=== PATIENT | male | born 1970 | race Caucasian/White ===

== ENCOUNTER 2025-02-06 13:40 | Emergency (ER) | payer OTHER ==
[~2025-02-06] VITALS: Ht 180.3 cm; Wt 76.3 kg
[~2025-02-06 13:40] MED LIST: IBUP-1456 PO
[2025-02-06 15:47] LABS: Hematocrit 31.1 % (41.0-53.0); Hemoglobin 10.0 g/dL (13.5-17.5); Mean Corpuscular Hemoglobin 23.3 pg (28.0-32.0); Mean Corpuscular Volume 72.7 fL (80.0-100.0); Nucleated Red Blood Cells % 0.0 %
[2025-02-06 15:53] LABS: Chloride 103 mmol/L (98-107); Potassium 4.4 mmol/L (3.5-5.1); Sodium 143 mmol/L (136-145)
[2025-02-06 15:54] LABS: Anion Gap 11 (5-15); Carbon Dioxide 29 mmol/L (20-31)
[2025-02-06 15:55] LABS: Calcium 9.4 mg/dL (8.7-10.4)
[2025-02-06 16:00] LABS: BUN/Creatinine Ratio 10.2 (10.0-20.0); Blood Urea Nitrogen 14 mg/dL (9-23); Glucose 95 mg/dL (74-106)
[2025-02-06 16:02] LABS: INR 0.92 (0.9-1.15); Partial Thromboplastin Time 30.1 SEC (24.5-34.5); Prothrombin Time 9.8 sec (9.3-11.8)
[2025-02-06] MEDS: IOHEXOL 350 MG/ML 100ML IJ ONE (16:45)
--- NOTE | 2025-02-06 17:22 | DVH ---
EXAM: CT CT CHEST/AB/PL W CON- IV ONLY INDICATION: Hematemesis/history of esophageal varices TECHNIQUE: Volumetric multidetector CT images of the chest, abdomen and pelvis were obtained after th e administration of IV contrast. All CT scans at this facility use dose modulation, iterative reconst ruction, and/or weight based dosing when appropriate to reduce radiation dose to as low as reasonably achievable. COMPARISON: None FINDINGS: LOWER NECK: Unremarkable LYMPH NODES/MEDIASTINUM: No abnormal lymph nodes by CT size criteria. CARDIOVASCULAR: Normal cardiac size. No pericardial effusion. No aneurysmal dilatation of the great v essels. Coronary artery calcifications. LUNG PARENCHYMA/PLEURAL SPACE: No pleural effusion or pneumothorax. Patchy areas of ground-glass in b ilateral upper lobes. Atelectasis in bilateral lung bases. Suspected partially calcified left pulmon hardy nodule measuring 9 mm. No bronchiectasis CHEST WALL: Unremarkable. LIVER: Normal hepatic size without suspicious focal lesion. GALLBLADDER/BILIARY TREE: No cholelithiasis. SPLEEN: Unremarkable. PANCREAS: Unremarkable. ADRENAL GLANDS: Unremarkable KIDNEYS: No hydronephrosis. benign-appearing cysts of the anterior superior kidney. BLADDER: Circumferential bladder wall thickening, which may be seen in the setting of acute versus ch ronic cystitis and correlate with urinalysis. PELVIC ORGANS: Unremarkable. BOWEL/MESENTERY: Small sliding hernia 1 distal circumferential esophageal thickening correlate for vo miting/reflux with subsequent esophagitis. Moderate to severe stool burden. Correlate for constipati on ASCITES: Absent LYMPHADENOPATHY: No pathologically enlarged lymph nodes by CT size criteria VASCULATURE: No aneurysmal dilatation. No significant large gastroesophageal varices. No definitive e vidence of portal hypertension. ABDOMINAL WALL: Unremarkable. MUSCULOSKELETAL: No acute fracture or aggressive focal osseous lesion. Suspected prior healed right p osterior 11th fracture. IMPRESSION: 1. Circumferential bladder wall thickening, which may be seen in the setting of acute versus chronic cystitis and correlate with urinalysis. 2. Small sliding hiatal hernia with distal circumferential esophageal thickening correlate for vomiti ng/reflux with subsequent esophagitis. 3. Moderate to severe stool burden. Correlate for constipation. 4. Patchy areas of ground-glass in bilateral upper lobes. Findings may be infectious and/or inflammat ory.
[2025-02-06] MEDS: HYDROmorphone HCL 2 MG/ML VL/or syr IV ONE (17:31)
[2025-02-06] MEDS: ONDANSETRON HCL 4 MG/2 ML VIAL IV ONE (17:31)
[2025-02-06 20:24] VITALS: TEMP 97.6
[2025-02-06 21:00] VITALS: O2SAT 98
[2025-02-06 21:10] VITALS: O2SAT 98
[2025-02-06 21:15] LABS: Urine Budding Yeast OCCASIONAL /hpf (None Seen); Urine Protein, UAD TRACE (Negative)
[2025-02-06] MEDS: levoFLOXacin 250 MG TAB PO ONE (21:43)
[2025-02-06] MEDS ORDERED: DICY10CA PO (21:48)
[2025-02-06] MEDS ORDERED: ZOFR4T PO (21:48)
[2025-02-06] MEDS ORDERED: LEVO500T91 PO (21:48)
[2025-02-06] MEDS ORDERED: HYDR-4798 PO (21:49)
[2025-02-06] MEDS ORDERED: LACT10SO3 PO (21:49)
--- NOTE | 2025-02-06 21:50 | ED.PDOC ---
GI ASSESSMENT HPI Comments This patient is a 54-year-old male who arrives the ED today for evaluation of abdominal pain as well as hematemesis concerns for the past few days. Patient states he has a history of esophageal varices and hiatal hernia with a concurrent history of alcohol use and abuse. Patient denies any fever. Patient states he has a history of anemia due to the varices that has required transfusions in the past. Vital signs were stable on arrival. Chief Complaint: GI Bleed Time Seen by MD: 15:03 Reviewed Notes: Nurses Notes Allergies: Coded Allergies: NO KNOWN ALLERGIES (Unverified , 03/09/22) Home Meds Active Scripts Ibuprofen (Ibuprofen) 800 Mg Tab, 1 TAB PO TID, #30 TAB Prov:SANKET AGGARWAL 03/09/22 Information Source: Patient Mode of Arrival: Ambulatory Timing: Days Duration: Since onset Prehospital treatment: None Quality: Aching, Cramping Vomitus: Coffee Grounds Severity: Moderate Recent: None Recent Hx of: Other (Esophageal varices, hiatal hernia and stomach ulcers) Pain Location: Diffuse, Epigastric, Periumbilical Modifying Factors: Food Associated sign and symptoms: Nausea, Vomiting, Abdominal Pain Past Medical History PAST MEDICAL HISTORY: Denies Past Medical History (Other): Patient, history of esophageal varices, hiatal hernia and gastric ulcers Surgical History: Denies all surgeries Family History Family History: Reviewed,noncontributory to illness Social History Smoker: Non-Smoker Alcohol: Denies ETOH Use Drugs: Denies Drug Use Lives In: Home Constitutional: denies: chills, diaphoresis, fatigue, fever, malaise, sweats, weakness, others EENTM: denies: blurred vision, double vision, ear bleeding, ear discharge, ear drainage, ear pain, ear ringing, eye pain, eye redness, hearing loss, mouth pain, mouth swelling, nasal discharge, nose bleeding, nose congestion, nose pain, photophobia, tearing, throat pain, throat swelling, voice changes, others Respiratory: denies: cough, hemoptysis, orthopnea, SOB at rest, shortness of breath, SOB with excertion, stridor, wheezing, others Cardiovascular: denies: chest pain, dizzy spells, diaphoresis, Dyspnea on exertion, edema, irregular heart beat, left arm pain, lightheadedness, palpitations, PND, syncope, others Gastrointestinal: reports: abdominal pain, nausea, vomiting; denies: abdomen distended, blood streaked bowels, constipated, diarrhea, dysphagia, difficulty swallowing, hematemesis, melena, poor appetite, poor fluid intake, rectal bleeding, rectal pain, others Genitourinary: denies: burning, dysuria, flank pain, frequency, hematuria, incontinence, penile discharge, penile sore, pain, testicle pain, testicle swelling, urgency, others Neurological: denies: dizziness, fainting, headache, left sided numbness, left sided weakness, numbness, paresthesia, pre-existing deficit, right sided numbness, right sided weakness, seizure, speech problems, tingling, tremors, weakness, others Musculoskeletal: denies: back pain, gout, joint pain, joint swelling, muscle pain, muscle stiffness, neck pain, others Integumetry: denies: bruises, change in color, change in hair/nails, dryness, laceration, lesions, lumps, rash, wounds, others Allergic/Immunocompromised: denies: Difficulty Healing, Frequent Infections, Hives, Itching, others Hematologic/Lymphatic: denies: anemia, blood clots, easy bleeding, easy bruising, swollen glands, others Endocrine: denies: excessive hunger, excessive sweating, excessive thirst, excessive urination, flushing, intolerance to cold, intolerance to heat, unexplained weight gain, unexplained weight loss, others Psychiatric: denies: anxiety, bipolar disorder, depression, hopeless, panic disorder, schizophrenia, sleepless, suicidal, others Physical Exam General Appearance: Moderate Distress (Due to abdominal pain concerns.), Normal HEENT: Normal ENT Inspection, Pharynx Normal, TMs Normal Neck: Full Range of Motion, Non-Tender, Normal, Normal Inspection Respiratory: Chest Non-Tender, Lungs Clear, No Accessory Muscle Use, No Respiratory Distress, Normal Breath Sounds Cardiovascular: No Edema, No JVD, No Murmur, No Gallop, Normal Peripheral Pulses, Regular Rate/Rhythm Breast Exam: Deferred Gastrointestinal: Other (Diffuse nonspecific epigastric tenderness to palpation . Pain extending towards the umbilicus. No signs of trauma. Abdomen was mildly rigid.) Genitalia: Deferred Pelvic: Deferred Rectal: Deferred Extremities: No calf tenderness, Normal inspection Neurologic: Alert Cerebellar Function: NOT DONE Reflexes: NOT DONE Skin: Dry, Normal Color, Warm Lymphatic: No Adenopathy Was a procedure done? Was a procedure done?: No GI differential Dx Differential Diagnosis: Appendicitis, Bowel Obstruction, Cholangitis, Cholecystitis, Constipation, Diverticular disease, Esophagitis, Gastritis/PUD, Gastroenteritis, Pancreatitis, Other (Esophageal varices, gastric ulcer) X-Ray, Labs, Meds, VS Vital Signs Date Time Temp Pulse Resp B/P (MAP) Pulse Ox O2 Delivery O2 Flow Rate FiO2 02/06/25 20:24 97.6 56 16 145/91 (109) 98 97.6 02/06/25 17:31 74 17 130/87 02/06/25 17:21 97.8 74 17 130/87 (101) 99 97.8 02/06/25 13:44 97.6 91 16 120/71 100 97.6 Lab Test 02/06/25 20:00 02/06/25 16:19 02/06/25 15:30 Range/Units Urine Color Yellow Yellow Urine Clarity Clear Clear Urine pH 7.0 5.0-9.0 Urine Specific Tyro > 1.050 H 1.001-1.035 Urine Protein Trace H Negative Urine Ketones Negative Negative Urine Blood Negative Negative /uL Urine Nitrite Negative Negative Urine Bilirubin Negative Negative Urine Urobilinogen Normal Negative mg/dL Urine Leukocyte Esterase Negative Negative /uL Urine RBC 5 0 - 3 /hpf Urine Microscopic WBC 1 0-3 /HPF Urine Squamous Epithelial Cells None seen <5 /hpf Urine Bacteria None seen None Seen /hpf Urine Mucus Few None Seen Urine Yeast (Budding) Occasional None Seen /hpf Urine Glucose Normal Normal mg/dL Troponin I High Sensitivity < 3 L < 3 L </=54 ng/L White Blood Count 9.5 4.4-10.8 10^3/uL Red Blood Count 4.28 L 4.5-5.90 10^6/uL Hemoglobin 10.0 L 13.5-17.5 g/dL Hematocrit 31.1 L 41.0-53.0 % Mean Corpuscular Volume 72.7 L 80.0-100.0 fL Mean Corpuscular Hemoglobin 23.3 L 28.0-32.0 pg Mean Corpuscular Hemoglobin Concent 32.0 32.0-36.0 g/dL Red Cell Distribution Width 24.0 H 11.8-14.3 % Platelet Count 608 H 140-450 10^3/uL Mean Platelet Volume 7.0 6.9-10.8 fL Neutrophils (%) (Auto) 69.4 37.0-80.0 % Lymphocytes (%) (Auto) 18.5 10.0-50.0 % Monocytes (%) (Auto) 6.1 0.0-12.0 % Eosinophils (%) (Auto) 5.3 0.0-7.0 % Basophils (%) (Auto) 0.7 0.0-2.0 % Neutrophils # (Auto) 6.6 1.6-8.6 10 ^3/uL Lymphocytes # (Auto) 1.7 0.4-5.4 10 ^3/uL Monocytes # (Auto) 0.6 0-1.3 10 ^3/uL Eosinophils # (Auto) 0.5 0-0.8 10 ^3/uL Basophils # (Auto) 0.1 0-0.2 10 ^3/uL Nucleated Red Blood Cells 0.0 % Prothrombin Time 9.8 9.3-11.8 sec Prothrombin Time INR 0.92 0.9-1.15 Activated Partial Thromboplast Time 30.1 24.5-34.5 SEC Sodium Level 143 136-145 mmol/L Potassium Level 4.4 3.5-5.1 mmol/L Chloride Level 103 98-107 mmol/L Carbon Dioxide Level 29 20-31 mmol/L Anion Gap 11 5-15 Blood Urea Nitrogen 14 9-23 mg/dL Creatinine 1.37 H 0.700-1.30 mg/dL Glomerular Filtration Rate Calc 62 >90 mL/min BUN/Creatinine Ratio 10.2 10.0-20.0 Serum Glucose 95 74-106 mg/dL Calcium Level 9.4 8.7-10.4 mg/dL B-Type Natriuretic Peptide 10.60 0-100 pg/mL Current Medications Medications (Trade) Dose Ordered Sig/Kelvin Route Start Time Stop Time Status Last Admin Hydromorphone HCl (Dilaudid Injection) 0.5 mg ONCE ONCE IV 02/06/25 15:30 02/06/25 15:31 DC 02/06/25 17:31 Ondansetron HCl (Zofran) 4 mg ONCE ONCE IV 02/06/25 15:30 02/06/25 15:31 DC 02/06/25 17:31 X-Ray, Labs, Meds, VS Comment All studies performed in the ED were evaluated by me personally. Serum studies were remarkable for a mild anemia with a thrombocytosis noted. 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 Additional [id number] stool burden was noted. Patchy areas of ground-glass in the bilateral upper lobes that may be infectious were noted as well. Patient will be given his 1st dose of antibiotics prior to discharge. Advised patient utilize antibiotics as directed until completion. Time of 1ST Reevaluation: 21:45 Reevaluation 1ST: Improved Consultation: PCP Patient Education/Counseling: Diagnosis, Treatment Family Education/Counseling: Diagnosis, Treatment SEPSIS Sepsis Screen Date sepsis recognized/suspect: Feb 06, 2025 Time Sepsis recognized/suspect: 1347 Recent Procedure: No On Antibiotic Therapy: No Respiratory Rate >20: No Heart Rate >90: Yes Temp<36 C (96.8 F) or >38.3 C: No SBP <90 or MAP <65 mmHG: No New Acute Mental Status Change: No Is the patient on CPAP, BIPAP,: No Physician Orders Heplock Iv (02/06/25 15:21) Electrocardigram (02/06/25 15:21) Ct Chest/Ab/Pl W Con- Iv Only (02/06/25 15:21) Levofloxacin Tablet (Levaquin Tablet) (02/06/25 21:30) Vital Signs Date Time Temp Pulse Resp B/P (MAP) Pulse Ox O2 Delivery O2 Flow Rate FiO2 02/06/25 20:24 97.6 56 16 145/91 (109) 98 97.6 02/06/25 17:31 74 17 130/87 02/06/25 17:21 97.8 74 17 130/87 (101) 99 97.8 02/06/25 13:44 97.6 91 16 120/71 100 97.6 Laboratory Tests Test 02/06/25 15:30 White Blood Count 9.5 10^3/uL (4.4-10.8) Medications Medications Dose Ordered Sig/Kelvin Route Start Time Stop Time Status Last Admin Dose Admin Hydromorphone HCl 0.5 mg ONCE ONCE IV 02/06/25 15:30 02/06/25 15:31 DC 02/06/25 17:31 Ondansetron HCl 4 mg ONCE ONCE IV 02/06/25 15:30 02/06/25 15:31 DC 02/06/25 17:31 Departure 1 Departure Time of Disposition: 21:46 Impression: Primary Impression: Esophagitis Additional Impressions: Pneumonia Constipation Disposition: HOME / SELF CARE / HOMELESS Condition: Stable Additional Instructions: Advised patient to utilize antibiotics as directed until completion as well as additional medication as needed. Patient should practice good hydration and healthy nutrition throughout. Advised ceasing alcohol use immediately and follow up with a alcohol support groups such as [facility]. e-Prescriptions Lactulose (Lactulose) 10 Gm/15 Ml Mandi 10 GM PO BIDP PRN, #150 ML Prov: WILEY DE LEON [facility] 02/06/25 Hydrocodone-Acetaminophen (Hydrocodone Bitartrate/AC 10-325 mg) 1 Tab Tab 1 TAB PO Q8HP PRN, #6 TAB Prov: WILEY DE LEON [facility] 02/06/25 Ondansetron Odt 4MG Tab (ZOFRAN PO) 4 Mg Tb 4 MG PO Q6HP PRN, #15 TAB ODT TAB-DISSOLVE IN MOUTH, THEN SWALLOW Prov: WILEY DE LEON [facility] 02/06/25 Dicyclomine Hcl (BENTYL CAPSULE) 10 Mg Cp 1 CAP PO Q6HPRN, #20 CAP 0 Refills Prov: WILEY DE LEON [facility] 02/06/25 Levofloxacin Hemihydrate (LEVAQUIN 500 MG) 500 Mg Tab 1 TAB PO DAILY for 7 Days, #7 TAB Prov: WILEY DE LEON [facility] 02/06/25 Discharged With: Self, Friend Critical Care Note Critical Care Time?: No Stability Stability form required: No Heart Score Heart Score: Heart Score Response (Comments) Value History N/A 0 EKG N/A 0 Age N/A 0 Risk Factors N/A 0 Troponin N/A 0 Total 0 WILEY DE LEON [facility] Feb 06, 2025 21:50
[2025-02-06] MEDS: LACTULOSE 20Gm/30ML SOLN PO ONE (22:12)
[2025-02-06 22:23] VITALS: BP 140/88; PULSE 78; RESP 18
== END 2025-02-06 22:29 | disposition home or self-care (01) ==
LOC: ER 13:40
DX: K20.91 Esophagitis, unspecified with bleeding (principal); J18.9 Pneumonia, unspecified organism; K59.00 Constipation, unspecified; Z79.1 Long term (current) use of non-steroidal anti-inflammatories (NSAID); Z87.11 Personal history of peptic ulcer disease
CPT/HCPCS: 36415; 71260; 74177; 80048; 81001; 83880; 84484; 85025; 85610; 85730; 96374; 96375; 99284; J1171; J2405; Q9967